=== PATIENT | female | born 2005 | race African-American/Black ===

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

== ENCOUNTER 2023-07-18 17:56 | Emergency (ER) | payer MEDICAID ==
[~2023-07-18] VITALS: Ht 162.6 cm; Wt 86.0 kg
[~2023-07-18 17:56] MED LIST: ACET-2708 MT; AMOX-494 MT
[2023-07-18 17:59] VITALS: BP 151/105; PULSE 122; RESP 16; O2SAT 98
[2023-07-18] MEDS ORDERED: ACETAMINOPHEN 325MG TABLET PO ONE (18:15)
[2023-07-18] MEDS ORDERED: TOPUD MT (18:27)
[2023-07-18] MEDS ORDERED: CLIN-194 MT (18:27)
[2023-07-18 18:34] VITALS: TEMP 98.3
== END 2023-07-18 18:38 | disposition home or self-care (01) ==
LOC: ER 17:56
DX: K13.0 Diseases of lips (principal)
CPT/HCPCS: 93005; 99283

== ENCOUNTER 2024-06-25 22:29 | Emergency (ER) | payer MEDICAID ==
[~2024-06-25] VITALS: Ht 165.1 cm; Wt 160.0 kg
[~2024-06-25 22:29] MED LIST changes: +CLIN-194 MT; +TOPUD MT
[2024-06-25 22:47] VITALS: BP 143/94; PULSE 93; RESP 16; TEMP 98.4; O2SAT 100
== END 2024-06-26 02:18 | disposition left against medical advice (07) ==
LOC: ER 22:29
DX: M54.9 Dorsalgia, unspecified (principal); I10 Essential (primary) hypertension
CPT/HCPCS: 81025; 99283

== ENCOUNTER 2024-08-05 11:38 | Emergency (ER) | payer SELFPAY ==
[~2024-08-05] VITALS: Ht 167.6 cm; Wt 141.0 kg
[2024-08-05 11:48] VITALS: BP 154/97; PULSE 109; RESP 18; TEMP 98; O2SAT 98
[2024-08-05] MEDS: DEXAMETHASONE 10 MG/ML VIAL IM ONE (12:47)
== END 2024-08-05 14:36 | disposition left against medical advice (07) ==
LOC: ER 12:22
DX: J02.0 Streptococcal pharyngitis (principal); I10 Essential (primary) hypertension
CPT/HCPCS: 99283; 81025; 87430; 96372; J1100